=== PATIENT | male | born 1950 ===

== ENCOUNTER 2024-06-12 07:30 | Inpatient (IN) | payer OTHER ==
[~2024-06-12] VITALS: Ht 167.6 cm; Wt 103.0 kg
[2024-06-12] MEDS ORDERED: LANTUS SOL100 UNIT/1 (07:58)
[2024-06-12] MEDS ORDERED: HUMALOG100 UNIT/2 (07:59)
[2024-06-12 08:02] VITALS: BP 143/80
[2024-06-12 09:52] LABS: RH POSITIVE
[2024-06-20] MEDS ORDERED: TRANEXAMIC ACID 100MG/1ML (1000MG) AMPUL IV ONE (08:45)
[2024-06-20] MEDS ORDERED: CEFAZOLIN SODIUM 1,000 MG VIAL ONE (08:45)
[2024-06-20] MEDS ORDERED: BUPIVACAINE HCL/Mpf 0.5% 10ML VIAL ONE (08:45)
[2024-06-20] MEDS ORDERED: LIDOCAINE HCL 1%/EPINEPHRINE 20ML VIAL IJ ONE (08:45)
[2024-06-20] MEDS ORDERED: POVIDONE-IODINE 118 ML BOTT TOP ONE (08:45)
[2024-06-20] MEDS ORDERED: ISOPROPYL ALCOHOL 30 ML OUNCE TOP ONE (09:34)
[2024-06-20] MEDS ORDERED: VANCOMYCIN HCL 1,000 MG VIAL ONE (09:43)
[2024-06-20] MEDS ORDERED: ONDANSETRON HCL 2 MG/ML VIAL IV PRN (13:45)
[2024-06-20] MEDS ORDERED: OxyCODONE HCL 5 MG TABLET (ROXICODONE) PO PRN (13:45)
[2024-06-20] MEDS ORDERED: MORPHINE SULFATE 4 MG/ML CARTRIDGE IV PRN (13:45)
[2024-06-20] MEDS ORDERED: SODIUM CHLORIDE 0.45 % 1,000 ML IV SCH (13:45)
[2024-06-20] MEDS ORDERED: MORPHINE SULFATE 4 MG/ML VIAL IV ONE (14:55)
[2024-06-20] MEDS ORDERED: GABAPENTIN 300 MG CAPSULE PO SCH (17:00)
[2024-06-20] MEDS ORDERED: CEFAZOLIN SODIUM 1,000 MG VIAL IV SCH (17:00)
[2024-06-20] MEDS ORDERED: ACETAMINOPHEN 500 MG GEL..CAP PO SCH (18:00)
[2024-06-20 18:27] VITALS: BP 159/77; O2SAT 98
[2024-06-20] MEDS ORDERED: INSULIN LISPRO 1,000 UNIT/10 ML UNITS SUBCUTANEO PRN (21:30)
[2024-06-20] MEDS ORDERED: DEXTROSE 50 % IN WATER 0.5 G/ML VIAL IV PRN (21:30)
[2024-06-21 01:43] VITALS: BP 116/66; O2SAT 100
[2024-06-21] MEDS ORDERED: DUI500 PO (07:30)
[2024-06-21] MEDS ORDERED: PERCOCET 5-3251 EACH PO (07:30)
[2024-06-21] MEDS ORDERED: ELIQUIS2.5 MG PO (07:30)
[2024-06-21 07:56] LABS: HEMATOCRIT 31.3 % (39.0-48.0); HEMOGLOBIN 10.3 g/dL (13-16.00); MEAN CELL VOLUME 84.3 fL (80.0-100.00); MEAN CORPUSCULAR HEMOGLOBIN 27.8 pg (27.00-32.0); RED BLOOD COUNT 3.71 M/uL (4.00-6.00); RED CELL DISTRIBUTION WIDTH 14.9 % (11.5-14.5)
[2024-06-21 08:00] VITALS: BP 146/73; O2SAT 95
[2024-06-21 08:19] LABS: PLATELET COUNT 144 K/uL (150-450)
[2024-06-21] MEDS ORDERED: APIXABAN 2.5 MG TABLET PO SCH (09:00)
[2024-06-21] MEDS ORDERED: SENNOSIDES 1 TAB TABLET PO SCH (09:00)
[2024-06-21] MEDS ORDERED: SOD FERRIC GLUC COMPLX/SUCROSE 62.5 MG/5 ML AMPUL IV SCH (13:50)
[2024-06-21] MEDS ORDERED: Cyanocobalamin/Mecobalamin 1 TAB.SL SL SCH (13:50)
[2024-06-21] MEDS ORDERED: INSULIN LISPRO 1,000 UNIT/10 ML UNITS SUBCUTANEO PRN ×2 (14:15→15:15)
[2024-06-21] MEDS ORDERED: DEXTROSE 50 % IN WATER 0.5 G/ML DISP.SYRIN IV PRN (14:15)
[2024-06-21 14:47] LABS: COVID-19 AG NEGATIVE (NEGATIVE)
[2024-06-21 15:10] LABS: ALBUMIN 2.7 gm/dL (3.4-5.0); BILIRUBIN TOTAL 0.98 mg/dL (0.3-1.2); CALCIUM 7.8 mg/dL (8.5-10.1); CREATININE SERUM 1.12 mg/dL (0.70-1.30); GFR 63.74; GLOBULINA 3.3 G/DL (2.4-3.5); POTASSIUM 4.55 mEq/L (3.5-5.1)
[2024-06-21] MEDS ORDERED: DEXTROSE 50 % IN WATER 0.5 G/ML VIAL IV PRN (15:15)
[2024-06-21 16:00] VITALS: BP 151/73; O2SAT 99
[2024-06-21] MEDS ORDERED: VITAMIN B COMPLEX 1 EACH PO SCH ×2 (17:00)
[2024-06-21] MEDS ORDERED: INSULIN GLARGINE,HUM.REC.ANLOG 1,000 UNITS/10 ML UNITS SUBCUTANEO STA (18:52)
[2024-06-21] MEDS ORDERED: INSULIN GLARGINE,HUM.REC.ANLOG 1,000 UNITS/10 ML UNITS SUBCUTANEO SCH (21:00)
[2024-06-21 21:29] VITALS: BP 128/68; O2SAT 99
[2024-06-22 01:50] VITALS: BP 146/83; O2SAT 97
[2024-06-22 08:00] VITALS: BP 150/69; O2SAT 97
[2024-06-22] MEDS ORDERED: IRON FUM,PS/FOLIC ACID/VITC/B3 1 CAP CAPSULE PO SCH (09:00)
[2024-06-22 12:54] LABS: HEMATOCRIT 25.4 % (39.0-48.0); MEAN CELL VOLUME 83.2 fL (80.0-100.00); MEAN CORPUSCULAR HGB CONC 34.1 g/dl (32.0-36.0); PLATELET COUNT 137 K/uL (150-450); RED BLOOD COUNT 3.05 M/uL (4.00-6.00); RED CELL DISTRIBUTION WIDTH 15.5 % (11.5-14.5)
[2024-06-22 13:01] LABS: HEMOGLOBIN 8.7 g/dL (13-16.00); MEAN CORPUSCULAR HEMOGLOBIN 28.5 pg (27.00-32.0)
[2024-06-22 18:06] VITALS: BP 143/75; O2SAT 91
[2024-06-22] MEDS ORDERED: INSULIN GLARGINE,HUM.REC.ANLOG 1,000 UNITS/10 ML UNITS SUBCUTANEO SCH (21:00)
[2024-06-22] MEDS ORDERED: FUROsemide 20 MG/2 ML VIAL IV SCH (22:15)
[2024-06-23] VITALS: BP 131/64; O2SAT 95
[2024-06-23 08:56] VITALS: BP 153/69; O2SAT 100
[2024-06-23] MEDS ORDERED: MORPHINE SULFATE 4 MG/ML CARTRIDGE IV PRN (11:45)
[2024-06-23 16:00] VITALS: BP 144/64; O2SAT 98
[2024-06-23] MEDS ORDERED: INSULIN LISPRO 1,000 UNIT/10 ML UNITS SUBCUTANEO SCH (17:00)
[2024-06-23] MEDS ORDERED: SOD FERRIC GLUC COMPLX/SUCROSE 62.5 MG/5 ML AMPUL IV SCH (19:42)
[2024-06-24 02:41] VITALS: BP 128/61; O2SAT 100
[2024-06-24 09:34] VITALS: BP 132/63; O2SAT 96
[2024-06-24 16:00] VITALS: BP 120/65; O2SAT 100
[2024-06-25 01:18] VITALS: BP 131/79; O2SAT 100
[2024-06-25 09:46] VITALS: BP 153/85; O2SAT 95
[2024-06-25 13:37] LABS: BASO % 0.1 % (0.1-1.2); EOS # 0.16 (0.04-0.54); EOS % 2.2 % (0.7-7.0); HEMATOCRIT 29.4 % (40.1-51.0); LYMPH # 1.01 (1.18-3.74); LYMPH % 13.7 % (19.3-53.1); MEAN CORPUSCULAR HEMOGLOBIN 28.1 pg (25.6-32.2); MONO # 0.54 (0.24-0.82); MONO % 7.3 % (4.7-12.5); NEUT % 76.3 % (34.0-71.1); PLATELET COUNT 214 K/uL (163-369); RED BLOOD COUNT 3.56 M/uL (4.63-6.08); RED CELL DISTRIBUTION WIDTH 14.5 % (11.6-14.4)
[2024-06-25] MEDS ORDERED: FUROsemide 20 MG/2 ML VIAL IV STA (14:23)
[2024-06-25 16:00] VITALS: BP 163/71; O2SAT 94
[2024-06-25] MEDS ORDERED: METOPROLOL SUCCINATE 25 MG TAB.SR.24H PO STA (16:20)
[2024-06-25 16:26] VITALS: O2SAT 99
[2024-06-25 20:00] VITALS: BP 144/81; O2SAT 95
[2024-06-25 20:13] VITALS: O2SAT 100
[2024-06-26 00:10] VITALS: O2SAT 96
[2024-06-26 01:00] VITALS: BP 145/54; O2SAT 96
[2024-06-26 08:00] VITALS: BP 160/73; O2SAT 95
[2024-06-26] MEDS ORDERED: FUROsemide 20 MG/2 ML VIAL IV SCH (09:00)
[2024-06-26] MEDS ORDERED: LACTOBACILLUS ACIDOPHILUS 1 CAP CAP PO SCH (13:00)
[2024-06-26 15:53] VITALS: BP 136/72; O2SAT 99
[2024-06-26] MEDS ORDERED: FUROsemide 40 MG/4 ML VIAL IV STA (18:20)
[2024-06-26] MEDS ORDERED: SODIUM CHLORIDE 0.45 % 1,000 ML IV SCH (18:30)
[2024-06-27 00:48] VITALS: BP 150/70; O2SAT 96
[2024-06-27 08:00] VITALS: BP 167/74; O2SAT 95
[2024-06-27] MEDS ORDERED: hydrALAZINE HCL 20 MG VIAL IV PRN (13:00)
[2024-06-27] MEDS ORDERED: AMLODIPINE BESYLATE 10 MG TABLET PO NR (13:30)
[2024-06-27 13:38] VITALS: BP 169/76; O2SAT 94
[2024-06-27 16:00] VITALS: BP 136/67; O2SAT 95
[2024-06-27 17:20] LABS: INFLUENZA A AG NEGATIVE (NEGATIVE); INFLUENZA B AG NEGATIVE (NEGATIVE)
[2024-06-27 17:49] LABS: COVID-19 AG NEGATIVE (NEGATIVE)
[2024-06-27] MEDS ORDERED: LOPERAMIDE HCL 2 MG CAPSULE PO PRN (18:45)
[2024-06-28 01:49] VITALS: BP 146/81; O2SAT 96
[2024-06-28 07:04] LABS: BASO % 0.3 % (0.1-1.2); EOS # 0.11 (0.04-0.54); EOS % 1.6 % (0.7-7.0); HEMATOCRIT 27.7 % (40.1-51.0); LYMPH % 17.2 % (19.3-53.1); MEAN CORPUSCULAR HEMOGLOBIN 26.9 pg (25.6-32.2); MONO % 11.5 % (4.7-12.5); NEUT # 4.81 (1.56-6.13); NEUT % 68.8 % (34.0-71.1); PLATELET COUNT 271 K/uL (163-369); RED BLOOD COUNT 3.35 M/uL (4.63-6.08); RED CELL DISTRIBUTION WIDTH 14.2 % (11.6-14.4)
[2024-06-28 08:00] VITALS: BP 160/77; O2SAT 97
[2024-06-28 08:05] LABS: CALCIUM 7.9 mg/dL (8.5-10.1); CREATININE SERUM 0.73 mg/dL (0.70-1.30); GFR 104.46; POTASSIUM 3.46 mEq/L (3.5-5.1)
[2024-06-28] MEDS ORDERED: PHENOL 177 ML BOTTLE MM SCH (13:00)
[2024-06-28 16:00] VITALS: BP 145/77; O2SAT 98
[2024-06-28 16:57] LABS: ABG pCO2 32.4 mmHg (35-45); BASE EXCESS 0.2 mmol/l; SaO2 88.7 %
[2024-06-28] MEDS ORDERED: FLUTICASONE PROPIONATE 50 MCG SPRAY NASAL SCH (17:00)
[2024-06-28] MEDS ORDERED: POTASSIUM CHLORIDE 10 MEQ CAPSULE PO SCH (17:00)
[2024-06-28] MEDS ORDERED: AMLODIPINE BESYLATE 10 MG TABLET PO NR (18:00)
[2024-06-28 19:11] LABS: ABG PO2 51.7 mmHg (80-100); allen test SATISFACTORY; o2 21 %; puncture site RADIAL RIGHT
[2024-06-28 19:12] LABS: mode ROOM AIR
[2024-06-29 01:27] VITALS: BP 133/74; O2SAT 100
[2024-06-29] MEDS ORDERED: LEVALBUTEROL HCL 0.63 MG/3 ML SOLUTION IH SCH (09:31)
[2024-06-29 09:42] VITALS: BP 161/79; O2SAT 98
[2024-06-29 16:41] VITALS: BP 160/70; O2SAT 99
[2024-06-29] MEDS ORDERED: LACTOBACILLUS ACIDOPHILUS 1 CAP CAP PO SCH (17:00)
[2024-06-29] MEDS ORDERED: levoFLOXacin IN DEXTROSE 5 % 150 ML IV SCH (17:00)
[2024-06-29] MEDS ORDERED: AMLODIPINE BESYLATE 10 MG TABLET PO SCH (17:00)
[2024-06-29] MEDS ORDERED: GUAIFENESIN/DEXTROMETHORPHAN 100MG/10ML BLIST.PACK PO SCH (17:00)
[2024-06-29] MEDS ORDERED: hydrALAZINE HCL 50 MG TABLET PO ONE (20:18)
[2024-06-29] MEDS ORDERED: hydrALAZINE HCL 50 MG TABLET PO SCH (21:00)
[2024-06-29 21:36] VITALS: BP 129/73; O2SAT 96
[2024-06-30 01:57] VITALS: BP 141/62; O2SAT 98
[2024-06-30 07:25] LABS: BASO % 0.2 % (0.1-1.2); EOS # 0.13 (0.04-0.54); EOS % 1.3 % (0.7-7.0); LYMPH # 1.37 (1.18-3.74); LYMPH % 13.6 % (19.3-53.1); MEAN CORPUSCULAR HEMOGLOBIN 27.3 pg (25.6-32.2); MONO # 0.74 (0.24-0.82); MONO % 7.3 % (4.7-12.5); NEUT # 7.77 (1.56-6.13); NEUT % 76.8 % (34.0-71.1); PLATELET COUNT 354 K/uL (163-369); RED BLOOD COUNT 3.08 M/uL (4.63-6.08); RED CELL DISTRIBUTION WIDTH 14.1 % (11.6-14.4)
[2024-06-30 07:39] LABS: HEMATOCRIT 25.6 % (40.1-51.0); HEMOGLOBIN 8.4 g/dL (13.7-17.5)
[2024-06-30 08:00] VITALS: BP 159/72; O2SAT 92
[2024-06-30 08:17] LABS: CALCIUM 7.9 mg/dL (8.5-10.1); CREATININE SERUM 0.77 mg/dL (0.70-1.30); GFR 98.23; POTASSIUM 3.78 mEq/L (3.5-5.1)
[2024-06-30 13:36] VITALS: O2SAT 90
[2024-06-30] MEDS ORDERED: FUROsemide 20 MG/2 ML VIAL IV PRN (14:00)
[2024-06-30 16:31] VITALS: O2SAT 99
[2024-06-30] MEDS ORDERED: CEFTRIAXONE SODIUM 2,000 MG VIAL IV SCH (17:00)
[2024-06-30] MEDS ORDERED: INSULIN LISPRO 1,000 UNIT/10 ML UNITS SUBCUTANEO SCH (17:00)
[2024-06-30 17:03] VITALS: BP 163/86; O2SAT 99
[2024-06-30] MEDS ORDERED: AZITHROMYCIN 500 MG VIAL IV SCH (21:00)
[2024-06-30] MEDS ORDERED: INSULIN GLARGINE,HUM.REC.ANLOG 1,000 UNITS/10 ML UNITS SUBCUTANEO SCH (21:00)
[2024-07-01] VITALS (7 sets, daily range): BP systolic 137–159; BP diastolic 66–80; O2SAT 95–99
[2024-07-01] MEDS ORDERED: INSULIN GLARGINE,HUM.REC.ANLOG 1,000 UNITS/10 ML UNITS SUBCUTANEO SCH (09:00)
[2024-07-02 01:00] VITALS: O2SAT 87
[2024-07-02 02:11] VITALS: BP 145/72; O2SAT 97
[2024-07-02 05:00] VITALS: O2SAT 94
[2024-07-02 08:00] VITALS: BP 152/72; O2SAT 90
[2024-07-02 09:33] VITALS: O2SAT 92
[2024-07-02] MEDS ORDERED: INSULIN LISPRO 1,000 UNIT/10 ML UNITS SUBCUTANEO SCH (12:00)
[2024-07-02 12:45] LABS: BASO % 0.3 % (0.1-1.2); EOS # 0.15 (0.04-0.54); EOS % 1.7 % (0.7-7.0); HEMATOCRIT 32.7 % (40.1-51.0); LYMPH # 1.34 (1.18-3.74); LYMPH % 15.1 % (19.3-53.1); MEAN CORPUSCULAR HEMOGLOBIN 27.6 pg (25.6-32.2); MONO % 5.6 % (4.7-12.5); NEUT # 6.71 (1.56-6.13); NEUT % 75.8 % (34.0-71.1); PLATELET COUNT 521 K/uL (163-369); RED BLOOD COUNT 3.98 M/uL (4.63-6.08); RED CELL DISTRIBUTION WIDTH 14.6 % (11.6-14.4)
[2024-07-02 14:55] LABS: BILIRUBIN TOTAL 1.23 mg/dL (0.3-1.2); CALCIUM 8.4 mg/dL (8.5-10.1); CREATININE SERUM 1.12 mg/dL (0.70-1.30); GFR 63.74; GLOBULINA 4.9 G/DL (2.4-3.5); POTASSIUM 4.26 mEq/L (3.5-5.1); TOTAL PROTEIN 6.9 gm/dL (6.4-8.2)
[2024-07-02 16:00] VITALS: BP 164/79; O2SAT 95
[2024-07-02] MEDS ORDERED: SIMETHICONE PO SCH (21:00)
[2024-07-02] MEDS ORDERED: INSULIN GLARGINE,HUM.REC.ANLOG 1,000 UNITS/10 ML UNITS SUBCUTANEO SCH (21:00)
[2024-07-02] MEDS ORDERED: LIDOCAINE HCL PO SCH (21:00)
[2024-07-02] MEDS ORDERED: MAGNESIUM HYDROXIDE PO SCH (21:00)
[2024-07-02] MEDS ORDERED: ALUMINUM HYDROXIDE PO SCH (21:00)
[2024-07-02] MEDS ORDERED: DEXAMETHASONE PO SCH (21:00)
[2024-07-03 02:11] VITALS: BP 136/70; O2SAT 97
[2024-07-03 05:00] VITALS: O2SAT 90
[2024-07-03 08:13] VITALS: BP 158/73; O2SAT 96
[2024-07-03 13:33] LABS: ABG PH 7.453 (7.35-7.45); ABG PO2 75.4 mmHg (80-100); BASE EXCESS 1.1 mmol/l; BICARBONATE 24.7 mmol/l (23-25); SaO2 95.7 %; Tco2 25.8 mmol/l
[2024-07-03 14:01] LABS: allen test SATISFACTORY; mode NASAL CANNULA; o2 32 %; puncture site RADIAL RIGHT
[2024-07-03] MEDS ORDERED: AZITHROMYCIN 500 MG VIAL IV ONE (16:39)
[2024-07-03] MEDS ORDERED: CEFAZOLIN SODIUM 1,000 MG VIAL ONE (20:23)
[2024-07-03] MEDS ORDERED: FUROsemide 20 MG/2 ML VIAL IV ONE (20:45)
[2024-07-03] MEDS ORDERED: CEFAZOLIN SODIUM 2,000 MG in 0.9 % SODIUM CHLORIDE 100 ML IV SCH (21:00)
[2024-07-03 21:23] VITALS: BP 132/57
[2024-07-04 00:20] VITALS: BP 137/65; O2SAT 95
[2024-07-04 08:00] VITALS: BP 151/72; O2SAT 97
[2024-07-04 08:48] LABS: ALBUMIN 1.8 gm/dL (3.4-5.0); BILIRUBIN TOTAL 0.66 mg/dL (0.3-1.2); CALCIUM 8.2 mg/dL (8.5-10.1); CREATININE SERUM 0.65 mg/dL (0.70-1.30); GFR 119.43; GLOBULINA 4.4 G/DL (2.4-3.5); POTASSIUM 4.65 mEq/L (3.5-5.1); TOTAL PROTEIN 6.2 gm/dL (6.4-8.2)
[2024-07-04 09:41] LABS: HEMOGLOBIN 10.2 g/dL (13.7-17.5); LYMPH % 17.3 % (19.3-53.1); MEAN CORPUSCULAR HEMOGLOBIN 27.2 pg (25.6-32.2); MONO % 8.9 % (4.7-12.5); NEUT % 70.6 % (34.0-71.1); PLATELET COUNT 551 K/uL (163-369); RED BLOOD COUNT 3.75 M/uL (4.63-6.08); RED CELL DISTRIBUTION WIDTH 14.6 % (11.6-14.4)
[2024-07-04 09:42] LABS: BASO % 0.3 % (0.1-1.2); EOS # 0.14 (0.04-0.54); EOS % 2.1 % (0.7-7.0); LYMPH # 1.14 (1.18-3.74); MONO # 0.59 (0.24-0.82); NEUT # 4.66 (1.56-6.13)
[2024-07-04] MEDS ORDERED: SOD FERRIC GLUC COMPLX/SUCROSE 62.5 MG/5 ML AMPUL IV SCH (10:26)
[2024-07-04 16:00] VITALS: BP 144/71; O2SAT 95
[2024-07-05 01:30] VITALS: BP 135/68; O2SAT 100
[2024-07-05 08:00] VITALS: BP 147/82; O2SAT 97
[2024-07-05] MEDS ORDERED: INSULIN LISPRO 1,000 UNIT/10 ML UNITS SUBCUTANEO SCH (08:00)
[2024-07-05 11:36] LABS: ABG PH 7.461 (7.35-7.45); ABG PO2 79.6 mmHg (80-100); ABG pCO2 36.7 mmHg (35-45); BICARBONATE 25.5 mmol/l (23-25); SaO2 96.4 %; Tco2 26.7 mmol/l
[2024-07-05 11:40] LABS: allen test SATISFACTORY; mode ROOM AIR; o2 21 %; puncture site BRADIAL LEFT
[2024-07-05] MEDS ORDERED: SOD FERRIC GLUC COMPLX/SUCROSE 62.5 MG/5 ML AMPUL IV SCH (12:00)
[2024-07-05 14:20] VITALS: O2SAT 92
[2024-07-05 16:00] VITALS: BP 152/68; O2SAT 95
[2024-07-05 16:21] VITALS: O2SAT 98
[2024-07-05] MEDS ORDERED: MELATONIN 5 MG TABLET PO SCH (21:00)
[2024-07-06 01:40] VITALS: BP 146/81; O2SAT 98
[2024-07-06 05:44] VITALS: O2SAT 91
[2024-07-06] MEDS ORDERED: MAG HYDROX/ALUMINUM HYD/SIMETH 30 ML BLIST.PACK PO ONE (07:10)
[2024-07-06 08:00] VITALS: BP 149/81; O2SAT 99
[2024-07-06 09:38] VITALS: O2SAT 86
[2024-07-06 16:00] VITALS: BP 142/64; O2SAT 95
[2024-07-06 16:58] VITALS: O2SAT 97
== END 2024-07-06 20:18 | DRG 466 ==
LOC: O/R 06-20 05:50 → SURH 06-20 05:50
PROVIDERS: Internal Medicine; Specialist; ADMIT Orthopaedic Surgery; ATTEND Orthopaedic Surgery
PROC: 0SWD0JZ Revision of Synthetic Substitute in Left Knee Joint, Open Approach (ICD-10-PCS; 2024-06-20)
PROC: 0QUF0JZ Supplement Left Patella with Synthetic Substitute, Open Approach (ICD-10-PCS; 2024-06-20)
PROC: 0SND0ZZ Release Left Knee Joint, Open Approach (ICD-10-PCS; principal; 2024-06-20 07:00)
PROC: 30233N1 Transfusion of Nonautologous Red Blood Cells into Peripheral Vein, Percutaneous Approach (ICD-10-PCS; 2024-06-23)
PROC: 30233L1 Transfusion of Nonautologous Fresh Plasma into Peripheral Vein, Percutaneous Approach (ICD-10-PCS; 2024-06-24)
PROC: 4A12X4Z Monitoring of Cardiac Electrical Activity, External Approach (ICD-10-PCS; 2024-06-25)
PROC: BB24Y0Z Computerized Tomography (CT Scan) of Bilateral Lungs using Other Contrast, Unenhanced and Enhanced (ICD-10-PCS; 2024-06-30)
PROC: B246ZZZ Ultrasonography of Right and Left Heart (ICD-10-PCS; 2024-06-30)
PROC: 3E0F7GC Introduction of Other Therapeutic Substance into Respiratory Tract, Via Natural or Artificial Opening (ICD-10-PCS; 2024-06-30)
DX: T84.018A Broken internal joint prosthesis, other site, initial encounter (principal); J18.9 Pneumonia, unspecified organism; D62 Acute posthemorrhagic anemia; T84.033A Mechanical loosening of internal left knee prosthetic joint, initial encounter; M17.12 Unilateral primary osteoarthritis, left knee; Y65.8 Other specified misadventures during surgical and medical care; M25.662 Stiffness of left knee, not elsewhere classified; M85.462 Solitary bone cyst, left tibia and fibula; R09.02 Hypoxemia; R00.0 Tachycardia, unspecified; E11.9 Type 2 diabetes mellitus without complications; E03.8 Other specified hypothyroidism; Z79.4 Long term (current) use of insulin
CPT/HCPCS: 71275